=== PATIENT | female | born 1955 | race Caucasian/White ===

== ENCOUNTER 2022-06-14 08:39 | Outpatient (REF) | payer BC, SELFPAY ==
[2022-06-14 11:38] LABS: MANUAL DIFF FLAG NO
[2022-06-14 12:03] LABS: Basophils Absolute Auto 0.1 X10*3/uL (0.0-0.2); Basophils Percent Auto 0.8 % (0-2); Eosinophils Absolute Auto 0.2 X10*3/uL (0.0-0.4); Eosinophils Percent Auto 3.1 % (0-4); Hematocrit 45.1 % (37.0-47.0); Hemoglobin 14.2 g/dl (12.0-16.0); Imm Gran Abs Auto 0.03 X10*3/uL (0.00-0.03); Imm Gran Pct Auto 0.4 % (0.0-0.4); Lymphocytes Absolute Auto 0.9 X10*3/uL (1.2-4.9); Lymphocytes Percent Auto 12.1 % (20-40); Mean Corpuscular HGB Conc 31.5 g/dl (31.0-35.0); Mean Corpuscular Hemoglobin 26.1 pg (27.0-33.0); Mean Corpuscular Volume 82.8 fL (80.0-98.0); Mean Platelet Volume 10.8 fL (9.4-12.3); Monocytes Absolute Auto 0.6 X10*3/uL (0.1-1.2); Monocytes Percent Auto 7.5 % (2-11); Neutrophils Absolute Auto 5.7 x10*3/uL (2.0-8.3); Neutrophils Percent Auto 76.1 % (45-73); Platelet Count 281 X10*3/uL (160-400); Red Blood Count 5.45 X10*6/uL (4.20-5.50); Red Cell Distribution Width 13.7 % (11.0-16.0); White Blood Count 7.4 X10*3/uL (4.8-10.8)
[2022-06-14 12:37] LABS: Alanine Aminotransferase 12 U/L (0-31); Albumin Level 4.1 g/dL (3.5-5.0); Alkaline Phosphatase 88 U/L (39-117); Anion Gap 14 (12-20); Aspartate Amino Transferase 17 U/L (5-31); Bilirubin Total 0.3 mg/dL (0.0-1.0); Blood Urea Nitrogen 10 mg/dL (9-16); Calcium 9.2 mg/dL (8.4-10.2); Carbon Dioxide 22 mmol/L (22-29); Chloride 108 mmol/L (96-108); Cholesterol 189 mg/dL; Estimated Glomerular Filt Rate > 60; Glucose Fasting 97 mg/dL (60-99); HDL Cholesterol 58 mg/dL; LDL Cholesterol Calculated 103 mg/dl; Potassium 4.3 mmol/L (3.3-5.1); Sodium 140 mmol/L (135-145); Total Protein 6.9 g/dL (6.5-8.0); Triglycerides 144 mg/dL
[2022-06-14 12:57] LABS: TSH reflex Free T4 2.62 uIU/mL (0.32-4.0); Vitamin D 25-OH Total 19.8 ng/mL (>30)
== END 2022-06-14 08:40 | disposition home or self-care (01) ==
LOC: HO.HMGCLDS 08:39
PROVIDERS: PCP Internal Medicine; Visit Provider Internal Medicine
DX: Z00.00 Encounter for general adult medical examination without abnormal findings (principal); E55.9 Vitamin D deficiency, unspecified; I10 Essential (primary) hypertension
CPT/HCPCS: 36415; 80053; 80061; 82306; 84443; 85025

== ENCOUNTER 2022-08-20 09:25 | Outpatient (REF) | payer MEDICARE, SELFPAY ==
--- NOTE | ~2022-08-20 | MM_ITS ---
EXAMINATION: BONE DENSITOMETRY CLINICAL INDICATION: Menopause. COMPARISON: None (current study represents initial baseline exam). TECHNIQUE: Using a [employer] DXA System (software version: 13.1) manufactured by [employer], dual-energy x-ray absorptiometry was performed of the lumbar spine and left hip. The images are of good technical quality. Summary results are attached. FINDINGS: AP SPINE L2-L4 (excluding L1): The data of L1-L4 has been changed to exclude the L1 vertebral body, because degenerative changes at this level may cause overestimation of lumbar spine density. BMD 0.772 g/cm2, Z-score -3.1, T-score -3.6, osteoporosis. LEFT FEMUR, NECK: BMD 0.823 g/cm2, Z-score -0.8, T-score -1.5, osteopenia. LEFT FEMUR, TOTAL: BMD 0.937 g/cm2, Z-score -0.2, T-score -0.6, normal. IDENTIFIED RISK FACTORS: Menopause. HISTORY OF FRACTURE: None listed. MEDICATIONS: Calcium, vitamin D. MM/XR DEXA axial skeleton IMPRESSION: 1. DIAGNOSIS: Osteoporosis based on the lowest T-score value of -3.6 in the lumbar spine applying World Health Organization criteria. 2. 10-YEAR FRACTURE RISK PREDICTION, FRAX: According to the guidelines, FRAX calculation should only be performed on patients in the osteopenia bone density category. Therefore, FRAX was not performed on this patient. 3. Treatment Recommendations: NOF guidelines recommend consideration for treatment in postmenopausal women and men age 50 and older presenting with the following: -A hip or vertebral (clinical or morphometric) fracture. -T-score less than or equal to -2.5 at the femoral neck or spine after appropriate evaluation to exclude secondary causes. -Low bone mass at the hip or spine and a 10-year fracture probability by FRAX of greater than or equal to 3% for hip fracture or greater than or equal to 20% for major osteoporotic fracture based on the [place] adapted WHO algorithm. 4. Other Recommendations: All treatment decisions require clinical judgment and consideration of individual patient factors, including patient preferences, comorbidities, previous drug use, risk factors not captured in the FRAX model (e.g. frailty, falls, vitamin D deficiency, increased bone turnover, interval significant decline in bone density) and possible under or overestimation of fracture risk by FRAX. Additional medical evaluation for secondary cause of low bone mineral density may be appropriate. FUTURE SCAN RECOMMENDATION: People with diagnosed cases of osteoporosis or at high risk for fracture should have regular bone mineral density tests. For patients eligible for Medicare, routine testing is allowed once every 2 years. The testing frequency can be increased to one year for patients who have rapidly progressing disease, those who are receiving or discontinuing medical therapy to restore bone mass, or have additional risk factors.
== END 2022-08-20 09:26 | disposition home or self-care (01) ==
LOC: HO.MAMMO 09:25
PROVIDERS: PCP Internal Medicine; Visit Provider Internal Medicine
DX: Z13.820 Encounter for screening for osteoporosis (principal); Z78.0 Asymptomatic menopausal state
CPT/HCPCS: 77080

== ENCOUNTER 2023-02-04 08:27 | Outpatient (AMB) | payer BC, SELFPAY ==
[2023-02-04 08:44] VITALS: BP 122/66; PULSE 68; O2SAT 97; BMI 39.1
--- NOTE | 2023-02-04 08:44 | A.OFFPC_ITS ---
Vital Signs 02/04/23 08:44 Height 5 ft 5 in Weight 235 lb BMI 39.1 BP 122/66 Blood Pressure Location Lt brachial Position Sitting Pulse 68 Pulse Source Pulse Oximeter Pulse Oximetry (%) 97 Oxygen Delivery Method Room Air Intake Visit Reasons: 6 Month follow up Intake Note: Pt is here today for 6 months follow up visit. Allergies No Known Allergies Allergy (Verified 02/04/23 08:45) Medication List - Last Reconciled 02/04/23 by Ely Reed MD olmesartan 5 mg PO DAILY omeprazole 20 mg PO DAILY Tobacco use date assessed: 02/04/23 Fall risk assessment: No Falls in past year Last assessed Fall Risk: 02/04/23 Dental Screening Dental Screen Date: 02/04/23 Did you have a dental visit in the last 12 months?: No Did you have a dental problem in the last 6 months where you did not have access to dental care?: No Was dental information given to patient?: Patient declined HPI 6 Month follow up HPI Details Pt presents for the follow-up of hypertension and chronic GERD stable on current medications. DEXA showed osteoporosis in lumbar spine with T-score-3.6. Patient has been taking vitamin-D 3 2000 units a day PFSH Family History Brother Mental health disorder Father Pancreatic cancer Social History Household Members Other:: single, 1 daughter, vegeterian,retired Housing: House Patient Tobacco Use Status: Former Tobacco user e-Cigarette/Vaping Use: Never Used service: No Current occupational status: retired Cognitive needs: No Hearing needs: No Vision needs: Yes Questionnaire Thrive Questionnaire Date Thrive assessed: 06/14/22 AUDIT C Alcohol Use Questionnaire (AUDIT-C) 1. How often do you have a drink containing alcohol?: Never 3. How often do you have six or more drinks on one occasion?: Never Total Score: 0 UBALDO-7 AMB Questionnaire UBALDO-7 Date UBALDO - 7 assessed: 06/14/22 Source: Developed by Drs. Akash Espinal, Vidya Currie, Rajeev So and colleagues, with an educational lenka from [employer]. Review of Systems Const All systems reviewed & are unremarkable except as noted in HPI and below Reports no additional complaints Eyes Reports no additional complaints ENT Reports no additional complaints Card Reports no additional complaints Resp Reports no additional complaints GI Reports no additional complaints Reports no additional complaints Musc Reports no additional complaints Physical exam (Primary Care) Vital Signs: Last Vital Signs Pulse 68 02/04/23 08:44 BP 122/66 02/04/23 08:44 Pulse Ox 97 02/04/23 08:44 Oxygen Delivery Method Room Air 02/04/23 08:44 BMI result Body Mass Index 39.1 Tobacco/Smoking Status: Tobacco use Status Tobacco use date assessed 02/04/23 02/04/23 08:48 Patient Tobacco Use Status Former Tobacco user 02/04/23 08:48 e-Cigarette/Vaping Use Never Used 02/04/23 08:48 Thrive Assessment: Date of Thrive Assessment Date Thrive assessed 06/14/22 02/04/23 08:48 Const General: no acute distress HENMT Head: Yes normal to inspection Neck Neck: Yes supple Resp Effort & Inspection: normal respiratory effort Auscultation: clear to auscultation bilaterally Cardio Rhythm: regular rhythm Heart sounds: S1 normal heart sound present and S2 normal heart sound present GI Palpation (GI): Soft to palpation Assessment and Plan Assessment & Plan (1) GERD (gastroesophageal reflux disease): Code(s): K21.9 - Gastro-esophageal reflux disease without esophagitis Plan: Continue PPI follow-up with GI (2) HTN (hypertension): Code(s): I10 - Essential (primary) hypertension Plan: Continue olmesartan (3) Osteoporosis: Comment: DEXA 08/22 T score in L spine -3.6, Fosamax started 02/22 Code(s): M81.0 - Age-related osteoporosis without current pathological fracture Plan: Osteoporosis treatment discussed with the patient . Fosamax 70 mg weekly will be started and patient will continue vitamin-D supplement. Vit D level will be checked today. She was advised to increase physical activity and weight-bearing exercises. Patient will return in 6 months for physical with fasting labs before Orders: Orders Comprehensive [place]. Panel Fast 6 Months E55.9 - Vitamin D deficiency, unspecified, I10 - Essential (primary) hypertension, M81.0 - Age-related osteoporosis without current pathological fracture, Z00.00 - Encounter for general adult medical examination without abnormal findings Lipid Panel 6 Months E55.9 - Vitamin D deficiency, unspecified, I10 - Essential (primary) hypertension, M81.0 - Age-related osteoporosis without current pathological fracture, Z00.00 - Encounter for general adult medical examination without abnormal findings TSH reflex Free T4 6 Months E55.9 - Vitamin D deficiency, unspecified, I10 - Essential (primary) hypertension, M81.0 - Age-related osteoporosis without current pathological fracture, Z00.00 - Encounter for general adult medical examination without abnormal findings Vitamin D 25-OH Total 6 Months E55.9 - Vitamin D deficiency, unspecified, I10 - Essential (primary) hypertension, M81.0 - Age-related osteoporosis without current pathological fracture, Z00.00 - Encounter for general adult medical examination without abnormal findings Complete Blood Count Auto Diff 6 Months E55.9 - Vitamin D deficiency, unspecif ied, I10 - Essential (primary) hypertension, M81.0 - Age-related osteoporosis without current pathological fracture, Z00.00 - Encounter for general adult medical examination without abnormal findings Medications: New alendronate 70 mg PO QWEEK 14 tabs 3RF Coding Level of Care Code Est Pt Level 4 (42874) Diagnoses GERD (gastroesophageal reflux disease) K21.9 HTN (hypertension) I10 Osteoporosis M81.0
== END 2023-02-04 09:18 | disposition home or self-care (01) ==
PROVIDERS: Visit Provider Internal Medicine
DX: K21.9 Gastro-esophageal reflux disease without esophagitis (principal); I10 Essential (primary) hypertension; M81.0 Age-related osteoporosis without current pathological fracture
CPT/HCPCS: 99214

== ENCOUNTER 2023-02-04 09:07 | Outpatient (REF) | payer MEDICARE, SELFPAY ==
[2023-02-04 15:16] LABS: Vitamin D 25-OH Total 31.6 ng/mL (>30)
== END 2023-02-04 09:08 | disposition home or self-care (01) ==
LOC: HO.HMGCLDS 09:07
PROVIDERS: PCP Internal Medicine; Visit Provider Internal Medicine
DX: E55.9 Vitamin D deficiency, unspecified (principal)
CPT/HCPCS: 36415; 82306

== ENCOUNTER 2023-06-18 11:27 | Day surgery (SDC) | payer MEDICARE, SELFPAY ==
--- NOTE | 2023-06-16 13:43 | HO.ANESPROP2 ---
HPI - Anesthesia Eval Consult details Narrative: 67yo F for Colonoscopy? PMFSH Active Problems Active Problems: All Active Problems (Updated 02/04/23 @ 09:14 by Ely Reed MD) Osteoporosis (Acute) GERD (gastroesophageal reflux disease) (Acute) Postmenopausal (Acute) Vitamin D deficiency (Acute) HTN (hypertension) (Acute) Hx of colonoscopy (Acute) Knee pain, bilateral (Acute) Annual physical exam (Acute) Arthritis (Acute) Past Medical History Medical History (Updated 06/20/23 @ 10:40 by Ely Reed MD) Osteoporosis HTN (hypertension) Hepatitis C GERD (gastroesophageal reflux disease) Arthritis Family History Family History Brother Mental health disorder Father Pancreatic cancer Surgical History Surgical History (Updated 06/20/23 @ 10:40 by Ely Reed MD) H/O colonoscopy Social History Social History Household Members Other:: single, 1 daughter, vegeterian,retired Housing: House Patient Tobacco Use Status: Former Tobacco user Quit Date: 1997 e-Cigarette/Vaping Use: Never Used service: No Current occupational status: retired Cognitive needs: No Hearing needs: No Vision needs: Yes Meds Allergies Allergy/AdvReac Type Severity Reaction Status Date / Time No Known Allergies Allergy Verified 06/20/23 10:02 Home Medications Medication Instructions Recorded Confirmed Last Taken Type omeprazole 20 mg tablet,delayed 20 mg PO DAILY 01/31/22 06/20/23 Unknown History release Assessment and Plan Assessment Anesthesia Assessment: Chart Reviewed
[2023-06-16 14:56] VITALS: BMI 38.3
[2023-06-18 11:44] VITALS: BMI 38.0
[2023-06-18 12:08] VITALS: BP 135/81; PULSE 83; RESP 16; TEMP 36.8; O2SAT 96
[2023-06-18] MEDS: Lactated Ringers 1,000 ML 100 ML IVCONT (12:08)
--- NOTE | 2023-06-18 13:03 | MHC.SHP ---
Pre-Procedural Eval Section A Date of Service: 06/18/23 Section B Chief Complaint: screening Details of Present Illness: see H&P no changes Relevant Family History (Specify if Yes): No Relevant Social History: None Present Medications: see Short Stay Collaborative assessment Medical History: No relevant PMH History of Previous Operations: No relevant previous surgery Allergies: Allergies Allergy/AdvReac Type Severity Reaction Status Date / Time No Known Allergies Allergy Verified 02/04/23 08:45 Review of Systems Sugical H&P ROS: Negative: Constitution, Cardiovascular, Respiratory, Neurological, Psychiatric, Hem-Onc, Allergic/Immunologic, Gastrointestinal, Genitourinary, Musculoskeletal, Integumentary, Endocrine and Eyes/Ears/Nose/Throat Exam Surgical H&P Exam: Normal: HEENT, Normal: Heart, Normal: Lungs, Normal: Extremities, Normal: Abdomen, Normal: Skin and Normal: Neurological Plan Diagnosis/Plan: Unchanged I have reviewed the history and physical and performed a pertinent physical examination on my patient. No changes have occurred unless specified. Time Spent With Patient Time: Total time managing care of this patient today ____ minutes.
[2023-06-18 13:35] VITALS: BP 93/46; PULSE 75; RESP 18; TEMP 36.3; O2SAT 96
[2023-06-18 13:50] VITALS: BP 108/59; PULSE 70; RESP 16; TEMP 36.9; O2SAT 97
--- NOTE | 2023-06-18 21:19 | OP_ITS ---
DATE OF SERVICE: 06/18/2023 SURGEON: Shashank Salamanca MD INDICATIONS: Colon cancer screening and prior history of adenomatous colon polyps. PREOPERATIVE DIAGNOSIS: POSTOPERATIVE DIAGNOSIS: PROCEDURE PERFORMED: Colonoscopy to the terminal ileum with snare polypectomy. ESTIMATED BLOOD LOSS: COMPLICATIONS: ANESTHESIA: Monitored anesthesia care. ASSISTANTS: SPECIMENS: DESCRIPTION OF PROCEDURE: A history and physical was performed. The risks and benefits of the procedure explained to the patient. Informed consent was obtained. The patient was placed in the left lateral decubitus position. A digital rectal exam was performed and was found to be normal. The Olympus pediatric video colonoscope was introduced into the rectum and advanced to the cecum. The cecum was identified by transillumination, palpation, and identification of ileocecal valve. Examination was performed. The scope was removed. She tolerated the procedure well and was returned to the recovery area in stable condition. FINDINGS: The terminal ileum was normal. The visualized colonic mucosa was within normal limits without evidence of masses or ulcers. In the cecum was a 10 mm polyp, which was removed with a hot snare piecemeal and suctioned into the trap. Two polyps in the rectum, 1 measuring 12 mm and 1 measuring 6 mm were removed with a snare and recovered via suction as well. No other polyps were identified. The quality of prep was good. Retroflexed examination showed moderate-sized internal hemorrhoids. IMPRESSION: Colon polyps. RECOMMENDATION: Follow up the biopsy results. MD IAD [place]/MARYLU / [id number]
== END 2023-06-18 14:40 | disposition home or self-care (01) ==
PROVIDERS: PCP Internal Medicine; Visit Provider Internal Medicine Gastroenterology
PROC: 0DJD8ZZ Inspection of Lower Intestinal Tract, Via Natural or Artificial Opening Endoscopic (ICD-10-PCS; CPT 45378; principal; 2023-06-18 13:00)
DX: Z12.11 Encounter for screening for malignant neoplasm of colon (principal); D12.8 Benign neoplasm of rectum; K63.5 Polyp of colon; Z86.010 Personal history of colon polyps; I10 Essential (primary) hypertension
CPT/HCPCS: 45385; 88305; J2405; J2704

== ENCOUNTER 2023-06-20 09:58 | Outpatient (AMB) | payer MEDICARE, SELFPAY ==
[2023-06-20 10:00] VITALS: BP 120/74; PULSE 70; O2SAT 95; BMI 38.3
--- NOTE | 2023-06-20 10:00 | A.OFFPC_ITS ---
Vital Signs 06/20/23 10:00 Height 5 ft 5 in Weight 230 lb BMI 38.3 BP 120/74 Blood Pressure Location Lt brachial Position Sitting Pulse 70 Pulse Source Pulse Oximeter Pulse Oximetry (%) 95 Oxygen Delivery Method Room Air Intake Visit Reasons: PE Intake Note: Pt is here today for PE. Allergies No Known Allergies Allergy (Verified 06/20/23 10:02) Medication List - Last Reconciled 06/20/23 by Ely Reed MD olmesartan 5 mg PO DAILY omeprazole 20 mg PO DAILY Tobacco use date assessed: 06/20/23 Fall risk assessment: No Falls in past year Last assessed Fall Risk: 06/20/23 Dental Screening Dental Screen Date: 06/20/23 Did you have a dental visit in the last 12 months?: Yes Did you have a dental problem in the last 6 months where you did not have access to dental care?: No Was dental information given to patient?: Patient has dentist HPI PE HPI Details Pt presents for PE. Patient complains of right shoulder pain worse when trying to use it for the last 3 weeks. Patient denies any injury or weakness in the right upper extremity. [facility] Medical History (Updated 06/20/23 @ 10:40 by Ely Reed MD) Osteoporosis HTN (hypertension) Hepatitis C GERD (gastroesophageal reflux disease) Arthritis Surgical History (Updated 06/20/23 @ 10:40 by Ely Reed MD) H/O colonoscopy Family History Brother Mental health disorder Father Pancreatic cancer Social History Household Members Other:: single, 1 daughter, vegeterian,retired Housing: House Patient Tobacco Use Status: Former Tobacco user Quit Date: 1997 e-Cigarette/Vaping Use: Never Used service: No Current occupational status: retired Cognitive needs: No Hearing needs: No Vision needs: Yes Questionnaire PHQ-9 Over the last 2 weeks, how often have you been bothered by any of the following problems? 1. Little interest or pleasure in doing things: not at all 2. Feeling down, depressed, or hopeless: several days 3. Trouble falling or staying asleep, or sleeping too much: not at all 4. Feeling tired or having little energy: not at all 5. Poor appetite or overeating: not at all 6. Feeling bad about yourself - or that you are a failure or have let yourself or your family down: not at all 7. Trouble concentrating on things, such as reading the newspaper or watching television: not at all 8. Moving or speaking so slowly that other people could have noticed. Or the opposite - being so fidgety or restless that you have been moving around a lot more than usual: not at all 9. Thoughts that you would be better off or of hurting yourself in some way: not at all Total score: 1 Depression Screening Interpretation: Negative Depression Screening Done: Yes Source: Developed by Drs. Akash Espinal, Vidya Currie, Rajeev So and colleagues, with an educational lenka from [employer]. Thrive Questionnaire Date Thrive assessed: 06/20/23 I am a: Patient What is your living situation today?: I have a steady place to live Within the past 12 months, did the food you bought not last and you didn't have the money to get more?: Never true Within the past 12 months, did you worry whether your food would run out before you got money to buy more?: Never true Do you have trouble paying for medicines?: No Do you have trouble getting transportation to medical appointments?: No Do you have trouble paying your heating and electricity bill?: No Do you have trouble taking care of your child, family member or friend?: No Do you have trouble with day-to-day activities such as bathing, preparing meals, shopping, managing finances, etc.?: No Are you currently unemployed and looking for a job?: No Are you interested in more education?: No Please select the resources that you would like help with: None Currently or been in a relationship where the following occur: no concerns reported THRIVE Score: 0 AUDIT C Alcohol Use Questionnaire (AUDIT-C) 1. How often do you have a drink containing alcohol?: Never 3. How often do you have six or more drinks on one occasion?: Never Total Score: 0 UBALDO-7 AMB Questionnaire UBALDO-7 Date UBALDO - 7 assessed: 06/20/23 Feeling nervous, anxious, or on edge: 1 = Several days Not being able to stop or control worryin = Several days Worrying too much about different things: 0 = Not at all Trouble relaxin = Not at all Being so restless that it is hard to sit still: 0 = Not at all Becoming easily annoyed or irritable: 0 = Not at all Feeling afraid as if something awful might happen: 0 = Not at all Total UBALDO-7 score (0-4 normal; 5-9 mild; 10-14 moderate; 15-21 severe): 2 Source: Developed by Drs. Akash Espinal, Vidya Currie, Rajeev So and colleagues, with an educational lenka from [employer]. Review of Systems Const All systems reviewed & are unremarkable except as noted in HPI and below Reports no additional complaints Eyes Reports no additional complaints ENT Reports no additional complaints Card Reports no additional complaints Resp Reports no additional complaints GI Reports no additional complaints Reports no additional complaints Physical exam (Primary Care) Vital Signs: Last Vital Signs Pulse 70 06/20/23 10:00 BP 120/74 06/20/23 10:00 Pulse Ox 95 06/20/23 10:00 Oxygen Delivery Method Room Air 06/20/23 10:00 BMI result Body Mass Index 38.3 Tobacco/Smoking Status: Tobacco use Status Tobacco use date assessed 06/20/23 06/20/23 10:05 Patient Tobacco Use Status Former Tobacco user 06/20/23 10:05 e-Cigarette/Vaping Use Never Used 06/20/23 10:05 Depression Screening Interpretation: Negative Thrive Assessment: Date of Thrive Assessment Date Thrive assessed 06/14/22 06/20/23 10:05 Currently or been in a relationship where the following occur: no concerns reported Const General: no acute distress HENMT Head: Yes normal to inspection Ears: hearing grossly normal bilaterally Face and sinus: Yes normal facial exam Mouth: Normal oral and palatal mucosa present Throat: Yes posterior oropharynx normal Eyes General: appearance normal, both eyes and all related structures Neck Neck: Yes no lymphadenopathy and Yes supple Resp Effort & Inspection: normal respiratory effort Auscultation: clear to auscultation bilaterally Cardio Rhythm: regular rhythm Heart sounds: S1 normal heart sound present and S2 normal heart sound present GI Inspection: Yes normal to inspection Palpation (GI): Soft to palpation Percussion: Yes normal to percussion Auscultation: normal bowel sounds Extrem Other: Slightly decreased range of motion right shoulder , anterior aspect tenderness, no joint swelling erythema or watmth General: Yes no clubbing, cyanosis or edema Assessment and Plan Assessment & Plan (1) Annual physical exam: Code(s): Z00.00 - Encounter for general adult medical examination without abnormal findings Plan: Well-balanced diet regular physical activity discussed with the patient she will have a fasting blood work today. She is up-to-date with mammogram at [facility] (2) HTN (hypertension): Code(s): I10 - Essential (primary) hypertension Plan: Continue olmesartan and low-sodium diet (3) Osteoporosis: Comment: DEXA 08/22 T score in L spine -3.6, refuses Fosamax Code(s): M81.0 - Age-related osteoporosis without current pathological fracture Plan: Patient refused taking Fosamax. She will continue vitamin-D supplement regular exercises at the gym at least twice a week (4) Vitamin D deficiency: Code(s): E55.9 - Vitamin D deficiency, unspecified Plan: Continue vitamin-D. (5) Shoulder pain, right: Code(s): M25.511 - Pain in right shoulder Plan: Physical therapy was recommended but patient declined, she will try home range of motion exercises Orders: Orders Complete Blood Count Auto Diff 365 Days E55.9 - Vitamin D deficiency, unspecified, I10 - Essential (primary) hypertension, M81.0 - Age-related osteoporosis without current pathological fracture, Z00.00 - Encounter for general adult medical examination without abnormal findings Lipid Panel 365 Days E55.9 - Vitamin D deficiency, unspecified, I10 - Essential (primary) hypertension, M81.0 - Age-related osteoporosis without current pathological fracture, Z00.00 - Encounter for general adult medical examination without abnormal findings Comprehensive [place]. Panel Fast 365 Days E55.9 - Vitamin D deficiency, unspecified, I10 - Essential (primary) hypertension, M81.0 - Age-related osteoporosis without current pathological fracture, Z00.00 - Encounter for general adult medical examination without abnormal findings Vitamin D 25-OH Total 365 Days E55.9 - Vitamin D deficiency, unspecified, I10 - Essential (primary) hypertension, M81.0 - Age-related osteoporosis without current pathological fracture, Z00.00 - Encounter for general adult medical examination without abnormal findings Coding Level of Care Code Est Pt Prev Care >65y(07850) Diagnoses Annual physical exam Z00.00 HTN (hypertension) I10 Osteoporosis M81.0 Vitamin D deficiency E55.9 Shoulder pain, right M25.511
== END 2023-06-20 10:49 | disposition home or self-care (01) ==
PROVIDERS: PCP Internal Medicine; Visit Provider Internal Medicine
DX: Z00.00 Encounter for general adult medical examination without abnormal findings (principal); I10 Essential (primary) hypertension; M81.0 Age-related osteoporosis without current pathological fracture; E55.9 Vitamin D deficiency, unspecified; M25.511 Pain in right shoulder
CPT/HCPCS: 99397

== ENCOUNTER 2023-06-20 10:39 | Outpatient (REF) | payer MEDICARE, SELFPAY ==
[2023-06-20 13:37] LABS: MANUAL DIFF FLAG NO
[2023-06-20 13:48] LABS: Basophils Absolute Auto 0.1 X10*3/uL (0.0-0.2); Eosinophils Absolute Auto 0.2 X10*3/uL (0.0-0.4); Eosinophils Percent Auto 2.9 % (0-4); Imm Gran Abs Auto 0.01 X10*3/uL (0.00-0.03); Imm Gran Pct Auto 0.2 % (0.0-0.4); Lymphocytes Absolute Auto 1.2 X10*3/uL (1.2-4.9); Lymphocytes Percent Auto 20.2 % (20-40); Mean Corpuscular HGB Conc 32.6 g/dl (31.0-35.0); Mean Corpuscular Hemoglobin 26.7 pg (27.0-33.0); Mean Corpuscular Volume 81.9 fL (80.0-98.0); Mean Platelet Volume 11.1 fL (9.4-12.3); Monocytes Absolute Auto 0.5 X10*3/uL (0.1-1.2); Monocytes Percent Auto 8.9 % (2-11); Neutrophils Percent Auto 66.8 % (45-73); Platelet Count 299 X10*3/uL (160-400); Red Blood Count 5.25 X10*6/uL (4.20-5.50); Red Cell Distribution Width 13.8 % (11.0-16.0); White Blood Count 5.9 X10*3/uL (4.8-10.8)
[2023-06-20 14:37] LABS: Alanine Aminotransferase 14 U/L (0-31); Albumin Level 4.3 g/dL (3.5-5.0); Alkaline Phosphatase 81 U/L (39-117); Anion Gap 13 (12-20); Aspartate Amino Transferase 20 U/L (5-31); Bilirubin Total 0.5 mg/dL (0.0-1.0); Blood Urea Nitrogen 10 mg/dL (9-16); Calcium 9.3 mg/dL (8.4-10.2); Carbon Dioxide 23 mmol/L (22-29); Chloride 106 mmol/L (96-108); Cholesterol 192 mg/dL (<200); Estimated Glomerular Filt Rate > 60; Glucose Fasting 97 mg/dL (60-99); HDL Cholesterol 60 mg/dL (>40); LDL Cholesterol Calculated 113 mg/dL (<100); Potassium 3.8 mmol/L (3.3-5.1); Sodium 138 mmol/L (135-145); Total Protein 7.5 g/dL (6.5-8.0); Triglycerides 97 mg/dL (<150)
[2023-06-20 14:39] LABS: TSH reflex Free T4 2.55 uIU/mL (0.32-4.0); Vitamin D 25-OH Total 51.1 ng/mL (>30)
== END 2023-06-20 10:40 | disposition home or self-care (01) ==
LOC: HO.HMGCLDS 10:39
PROVIDERS: PCP Internal Medicine; Visit Provider Internal Medicine
DX: Z00.00 Encounter for general adult medical examination without abnormal findings (principal); M81.0 Age-related osteoporosis without current pathological fracture; E55.9 Vitamin D deficiency, unspecified; I10 Essential (primary) hypertension
CPT/HCPCS: 36415; 80053; 80061; 82306; 84443; 85025

== ENCOUNTER 2024-01-22 09:31 | Outpatient (AMB) | payer MEDICARE, SELFPAY ==
--- NOTE | 2024-01-22 09:35 | AM.OFFWIN_ITS ---
Intake Vital Signs 01/22/24 09:39 Weight 228 lb BP 140/80 H Blood Pressure Location Lt brachial Position Sitting Pulse 73 Pulse Source Pulse Oximeter Pulse Oximetry (%) 98 Oxygen Delivery Method Room Air Intake Visit Reasons: EP- RT eye pain, redness Intake Note: Patient here for right eye pain that started friday. worsening and redness Patient Tobacco Use Status: Former Tobacco user Allergies No Known Allergies Allergy (Verified 01/22/24 09:39) Do you need a note to return to daycare/school/sports/work: No HPI HPI Comments History of Present Illness Details Patient is a 68-year-old female complaining of redness and increasing pain in her right eye for 3 days. She states that she woke up 3 days ago with the redness in her right eye. She states it has been getting increasingly painful since then. She denies any changes in her vision, blurry vision, any discharge, or trauma to the area. [facility] Medical History Osteoporosis HTN (hypertension) Hepatitis C GERD (gastroesophageal reflux disease) Arthritis Surgical History H/O colonoscopy Family History Brother Mental health disorder Father Pancreatic cancer Social History Household Members Other:: single, 1 daughter, vegeterian,retired Housing: House Patient Tobacco Use Status: Former Tobacco user e-Cigarette/Vaping Use: Never Used service: No Current occupational status: retired Cognitive needs: No Hearing needs: No Vision needs: Yes Review of Systems Const All systems reviewed & are unremarkable except as noted in HPI and below Physical Exam Vital Signs: Last Vital Signs Pulse 73 01/22/24 09:39 BP 140/80 H 01/22/24 09:39 Pulse Ox 98 01/22/24 09:39 Oxygen Delivery Method Room Air 01/22/24 09:39 Const General: cooperative, healthy appearing, comfortable, no acute distress and well developed Orientation/consciousness: patient oriented x3 Limitations: no limitations HEENT Head: Yes normal to inspection Ears: hearing grossly normal bilaterally General nose exam: Normal external nose present Face and sinus: Yes normal facial exam Eyes Alignment and Position: alignment normal and position normal Periorbital: periorbital findings normal Eyelids: Yes eyelids normal Conjunctivae: conjunctivae normal (left eye) and conjunctival abnormal right subconjunctival hemorrhage (Right eye, lateral and inferior to the iris has blood pooling and hemorrhage ) Corneas: corneas normal Pupils: Equal, round and reactive pupils present and Pupils normal by confrontation EOM: EOMs intact bilaterally Neck Neck: Yes normal visual inspection and Yes full ROM Resp Effort & Inspection: normal respiratory effort and able to speak in complete sentences Skin General skin exam: no rashes or lesions noted Neuro General: patient oriented x3 Cranial nerves: Yes Equal, round and reactive pupils present Extrem General: Yes normal to inspection Assessment & Plan Assessment & Plan (1) Hyphema of right eye: Code(s): H21.01 - Hyphema, right eye Plan: Blood pressure is a little elevated at 140/80, patient does have history of hypertension. Apparent no trauma hyphema with pain, called Dr. Adorno's office to have patient emergently evaluated at 13:00 today. Plan See above Coding Level of Care Code Est Pt Level 4 (65950) Diagnoses Hyphema of right eye H21.01
[2024-01-22 09:39] VITALS: BP 140/80; PULSE 73; O2SAT 98
== END 2024-01-22 10:12 | disposition home or self-care (01) ==
PROVIDERS: PCP Internal Medicine; Visit Provider Physician Assistant
DX: H21.01 Hyphema, right eye (principal)
CPT/HCPCS: 99214

== ENCOUNTER 2024-02-03 09:11 | Outpatient (AMB) | payer MEDICARE, SELFPAY ==
--- NOTE | 2024-02-03 09:31 | AM.OFFWIN_ITS ---
Intake Vital Signs 02/03/24 09:32 Height 5 ft 5 in Weight 231 lb BMI 38.4 BP 126/78 Blood Pressure Location Rt brachial Position Sitting Pulse 71 Pulse Source Pulse Oximeter Pulse Oximetry (%) 98 Oxygen Delivery Method Room Air Intake Visit Reasons: EP RT/LT foot injury Intake Note: Patient here because about 1 week ago she dropped a bench on her right foot and since then it has become bothersome and wants to make sure nothing is broken. Patient Tobacco Use Status: Former Tobacco user Allergies No Known Allergies Allergy (Verified 02/03/24 09:33) Do you need a note to return to daycare/school/sports/work: No HPI HPI Comments History of Present Illness Details Patient is a 68-year-old female complaining of right foot pain for 10 days. She states that 10 days ago, her CT knocked over a small wooden bench that fell on both of her feet. Since then, her left foot has improved but her right foot is still swollen and gets painful and sometimes gets so swollen that she has numbness and tingling in her foot. She states she has been trying to rest her feet using ice and elevation for the swelling. She is just concerned because the right foot is still swollen and painful and she wants to make sure nothing is broken. [facility], [facility] Medical History Osteoporosis HTN (hypertension) Hepatitis C GERD (gastroesophageal reflux disease) Arthritis Surgical History H/O colonoscopy Family History Brother Mental health disorder Father Pancreatic cancer Social History Household Members Other:: single, 1 daughter, vegeterian,retired Housing: House Patient Tobacco Use Status: Former Tobacco user e-Cigarette/Vaping Use: Never Used service: No Current occupational status: retired Cognitive needs: No Hearing needs: No Vision needs: Yes Review of Systems Const All systems reviewed & are unremarkable except as noted in HPI and below Physical Exam Vital Signs: Last Vital Signs Pulse 71 02/03/24 09:32 BP 126/78 02/03/24 09:32 Pulse Ox 98 02/03/24 09:32 Oxygen Delivery Method Room Air 02/03/24 09:32 BMI result Body Mass Index 38.4 Const General: cooperative, healthy appearing, comfortable and no acute distress Orientation/consciousness: patient oriented x3 Limitations: no limitations HEENT Head: Yes normal to inspection Resp Effort & Inspection: normal respiratory effort and able to speak in complete sentences Neuro General: patient oriented x3 Extrem Right lower extremity: foot Details: tenderness Location: of the dorsal foot and of the mid foot, toes with normal ROM, edema Location: of the dorsal foot and of the medial foot, vascular exam Details: normal capillary refill, tendon exam Details: active flexion normal and active extension normal and motor-sensory exam Details: light-touch normal; no unusual warmth, no abrasion, no laceration and no ecchymosis Left lower extremity: normal to inspection Assessment & Plan Assessment & Plan (1) Injury of foot, right: Code(s): S99.921A - Unspecified injury of right foot, initial encounter Qualifiers: Encounter type: initial encounter Qualified Code(s): S99.921A - Unspecified injury of right foot, initial encounter Plan: With persistent swelling and pain, we will get a x-ray of the right foot, recommend patient continue with rest ice and ibuprofen as needed for pain. (2) Foot pain, right: Code(s): M79.671 - Pain in right foot Plan: See above (3) Swelling of right foot: Code(s): M79.89 - Other specified soft tissue disorders Plan: See above Plan See above Orders: Orders XR foot RT min 3V Today M79.671 - Pain in right foot, M79.89 - Other specified soft tissue disorders, S99.921A - Unspecified injury of right foot, initial encounter Coding Level of Care Code Est Pt Level 3 (61555) Diagnoses Injury of right foot, initial encounter S99.921A Encounter type: initial encounter Foot pain, right M79.671 Swelling of right foot M79.89
[2024-02-03 09:32] VITALS: BP 126/78; PULSE 71; O2SAT 98; BMI 38.4
== END 2024-02-03 10:40 | disposition home or self-care (01) ==
PROVIDERS: PCP Internal Medicine; Visit Provider Physician Assistant
DX: S99.921A Unspecified injury of right foot, initial encounter (principal); M79.671 Pain in right foot; M79.89 Other specified soft tissue disorders
CPT/HCPCS: 99213

== ENCOUNTER 2024-02-03 10:02 | Outpatient (REF) | payer MEDICARE, SELFPAY ==
--- NOTE | ~2024-02-03 | XR_ITS ---
EXAMINATION: XR FOOT, RIGHT CLINICAL INFORMATION: Unspecified foot injury COMPARISON: None available. TECHNIQUE: AP, lateral, and oblique views of the right foot. FINDINGS: No fracture, dislocation or destructive processes or erosive change. Moderate-sized plantar spur. XR/XR foot RT min 3V IMPRESSION: No acute findings. Electronically signed by: Emerson Nunez MD 02/03/2024 11:16 AM EDT
== END 2024-02-03 10:03 | disposition home or self-care (01) ==
LOC: HO.HMGCX 10:02
PROVIDERS: PCP Internal Medicine; Visit Provider Physician Assistant
DX: S99.921A Unspecified injury of right foot, initial encounter (principal); M79.671 Pain in right foot; M79.89 Other specified soft tissue disorders
CPT/HCPCS: 73630

== ENCOUNTER 2024-04-17 09:08 | Outpatient (AMB) | payer MEDICARE, SELFPAY ==
[2024-04-17 09:14] VITALS: BP 132/90; PULSE 90; TEMP 36.9; O2SAT 98; BMI 38.4
--- NOTE | 2024-04-17 09:14 | AM.OFFWIN_ITS ---
Intake Vital Signs 3 04/17/24 09:14 Height 5 ft 5 in Weight 231 lb BMI 38.4 BP 132/90 H Blood Pressure Location Rt brachial Position Sitting Pulse 90 Pulse Source Pulse Oximeter Temp 98.4 F Temp Source Oral Pulse Oximetry (%) 98 Intake Visit Reasons: EP jaw pain Intake Note: pt is here for jaw pain, had tooth pain and went into jaw Patient Tobacco Use Status: Former Tobacco user Allergies No Known Allergies Allergy (Verified 04/17/24 09:15) Do you need a note to return to daycare/school/sports/work: No HPI HPI Comments 2 History of Present Illness0 Details 68 y/o female patient who presents to [facility] walk in clinic with c/o Left Jaw pain associated with tooth infection. Pt reports that she has a broken tooth and infected. She noticed symptoms 4 days ago. She tried to call her Dentist today, but got an answering service and did not leave Voicemail. PFSH Medical History Osteoporosis HTN (hypertension) Hepatitis C GERD (gastroesophageal reflux disease) Arthritis Surgical History H/O colonoscopy Family History Brother Mental health disorder Father Pancreatic cancer Social History Household Members Other:: single, 1 daughter, vegeterian,retired Housing: House Patient Tobacco Use Status: Former Tobacco user e-Cigarette/Vaping Use: Never Used service: No Current occupational status: retired Cognitive needs: No Hearing needs: No Vision needs: Yes Review of Systems Const All systems reviewed & are unremarkable except as noted in HPI and below Physical Exam Vital Signs: Last Vital Signs Temp 98.4 F 04/17/24 09:14 Pulse 90 04/17/24 09:14 BP 132/90 H 04/17/24 09:14 Pulse Ox 98 04/17/24 09:14 BMI result Body Mass Index 38.4 Const General: cooperative and no acute distress Orientation/consciousness: patient oriented x3 HEENT Head: Yes normocephalic Ears: external ears normal General nose exam: Normal external nose present Face and sinus: Yes sinuses nontender Mouth: tongue normal and moist mucous membranes Teeth and gingiva: dentures, gingiva abnormal diffusely erythematous and tender and poor dentition Teeth image: 2 1. Partial broken tooth, infected black in color. Red inflamed Gums. Missing all of the upper teeth and most of her lower teeth. Throat: Yes posterior oropharynx normal, Yes tonsils normal and Yes uvula midline Neuro General: patient oriented x3, gait normal and moves all extremities Psych Speech and movement: Normal speech and movement present Assessment & Plan Assessment & Plan (1) Dental infection: Code(s): K04.7 - Periapical abscess without sinus Plan: Ordered PCN Pt needs to f/u with Dentist for tooth extrction. NSAIDs for pain relief. Medications: New 2 penicillin V potassium 500 mg PO BID 10 tabs 0RF 5 days K04.7 - Periapical abscess without sinus Coding Level of Care Code Est Pt Level 3 (14089) Diagnoses Dental infection K04.7 Time Spent (min) 15
== END 2024-04-17 10:10 | disposition home or self-care (01) ==
PROVIDERS: PCP Internal Medicine; Visit Provider Nurse Practitioner Family
DX: K04.7 Periapical abscess without sinus (principal)

== ENCOUNTER → 2024-04-17 09:08 | Outpatient (BNVA) | payer MEDICARE, SELFPAY | PROVIDERS: PCP Internal Medicine; Visit Provider Nurse Practitioner Family | DX: K04.7 Periapical abscess without sinus (principal) | CPT/HCPCS: 99212 ==

== ENCOUNTER 2024-06-18 10:14 | Outpatient (REF) | payer MEDICARE, SELFPAY ==
[2024-06-18 13:03] LABS: MANUAL DIFF FLAG NO
[2024-06-18 13:07] LABS: Basophils Absolute Auto 0.1 X10*3/uL (0.0-0.2); Eosinophils Absolute Auto 0.3 X10*3/uL (0.0-0.4); Eosinophils Percent Auto 5.4 % (0-4); Hematocrit 44.8 % (37.0-47.0); Hemoglobin 14.1 g/dl (12.0-16.0); Imm Gran Abs Auto 0.02 X10*3/uL (0.00-0.03); Imm Gran Pct Auto 0.3 % (0.0-0.4); Lymphocytes Absolute Auto 1.2 X10*3/uL (1.2-4.9); Lymphocytes Percent Auto 19.7 % (20-40); Mean Corpuscular HGB Conc 31.5 g/dl (31.0-35.0); Mean Corpuscular Hemoglobin 26.1 pg (27.0-33.0); Mean Corpuscular Volume 82.8 fL (80.0-98.0); Mean Platelet Volume 10.7 fL (9.4-12.3); Monocytes Absolute Auto 0.6 X10*3/uL (0.1-1.2); Monocytes Percent Auto 8.8 % (2-11); Neutrophils Absolute Auto 4.1 x10*3/uL (2.0-8.3); Neutrophils Percent Auto 64.8 % (45-73); Platelet Count 307 X10*3/uL (160-400); Red Blood Count 5.41 X10*6/uL (4.20-5.50); Red Cell Distribution Width 14.1 % (11.0-16.0); White Blood Count 6.3 X10*3/uL (4.8-10.8)
[2024-06-18 13:30] LABS: Alanine Aminotransferase 18 U/L (0-31); Alkaline Phosphatase 75 U/L (39-117); Anion Gap 10 (12-20); Aspartate Amino Transferase 22 U/L (5-31); Bilirubin Total 0.5 mg/dL (0.0-1.0); Blood Urea Nitrogen 7 mg/dL (9-16); Calcium 9.1 mg/dL (8.4-10.2); Carbon Dioxide 25 mmol/L (22-29); Chloride 110 mmol/L (96-108); Cholesterol 186 mg/dL (<200); Estimated Glomerular Filt Rate > 60; Glucose Fasting 98 mg/dL (60-99); HDL Cholesterol 56 mg/dL (>40); LDL Cholesterol Calculated 107 mg/dL (<100); Potassium 4.1 mmol/L (3.3-5.1); Sodium 141 mmol/L (135-145); Total Protein 7.3 g/dL (6.5-8.0); Triglycerides 116 mg/dL (<150)
[2024-06-18 13:38] LABS: Vitamin D 25-OH Total 71.7 ng/mL (>30)
== END 2024-06-18 10:15 | disposition home or self-care (01) ==
LOC: HO.HMGCLDS 10:14
PROVIDERS: PCP Internal Medicine; Visit Provider Internal Medicine
DX: Z00.00 Encounter for general adult medical examination without abnormal findings (principal); E55.9 Vitamin D deficiency, unspecified; M81.0 Age-related osteoporosis without current pathological fracture; I10 Essential (primary) hypertension
CPT/HCPCS: 36415; 80053; 80061; 82306; 85025

== ENCOUNTER 2024-06-25 09:02 | Outpatient (AMB) | payer MEDICARE, SELFPAY ==
[2024-06-25 09:07] VITALS: BP 120/70; PULSE 85; TEMP 36.7; O2SAT 99; BMI 37.9
--- NOTE | 2024-06-25 09:07 | A.OFFPC_ITS ---
Vital Signs 06/25/24 09:07 Height 5 ft 5 in Weight 228 lb BMI 37.9 BP 120/70 Blood Pressure Location Rt brachial Position Sitting Pulse 85 Pulse Source Pulse Oximeter Temp 98.1 F Temp Source Oral Pulse Oximetry (%) 99 Oxygen Delivery Method Room Air Intake Visit Reasons: Annual PE Intake Note: Pt is here today for PE. Allergies No Known Allergies Allergy (Verified 06/25/24 09:09) Medication List - Last Reconciled 06/25/24 by Ely Reed MD olmesartan 5 mg PO DAILY omeprazole 20 mg PO DAILY Tobacco use date assessed: 06/25/24 Fall risk assessment: No Falls in past year Last assessed Fall Risk: 06/25/24 Dental Screening Dental Screen Date: 06/25/24 Did you have a dental visit in the last 12 months?: Yes Did you have a dental problem in the last 6 months where you did not have access to dental care?: No Was dental information given to patient?: Patient has dentist HPI Annual PE HPI Details Patient presents for physical. She reports chronic anxiety getting worse over last few months due to political situation. Patient denies change in appetite, sleeping pattern, depression or suicide ideation. She used to see a counselor is not interested in psychotherapy. [facility] Medical History Osteoporosis HTN (hypertension) Hepatitis C GERD (gastroesophageal reflux disease) Arthritis Surgical History (Updated 06/25/24 @ 10:07 by Ely Reed MD) H/O colonoscopy Family History Brother Mental health disorder Father Pancreatic cancer Social History Household Members Other:: single, 1 daughter, vegeterian,retired Housing: House Patient Tobacco Use Status: Former Tobacco user e-Cigarette/Vaping Use: Never Used service: No Current occupational status: retired Cognitive needs: No Hearing needs: No Vision needs: Yes Questionnaire PHQ-9 Over the last 2 weeks, how often have you been bothered by any of the following problems? 1. Little interest or pleasure in doing things: several days 2. Feeling down, depressed, or hopeless: several days 3. Trouble falling or staying asleep, or sleeping too much: several days 4. Feeling tired or having little energy: several days 5. Poor appetite or overeating: several days 6. Feeling bad about yourself - or that you are a failure or have let yourself or your family down: not at all 7. Trouble concentrating on things, such as reading the newspaper or watching television: not at all 8. Moving or speaking so slowly that other people could have noticed. Or the opposite - being so fidgety or restless that you have been moving around a lot more than usual: not at all 9. Thoughts that you would be better off or of hurting yourself in some way: not at all Total score: 5 Depression Screening Interpretation: Negative Depression Screening Done: Yes 66073 - PHQ-9 Billing: Yes Source: Developed by Drs. Akash Espinal, Vidya Currie, Rajeev So and colleagues, with an educational lenka from [employer]. Thrive Questionnaire Date Thrive assessed: 06/25/24 I am a: Patient What is your living situation today?: I have a steady place to live Within the past 12 months, did the food you bought not last and you didn't have the money to get more?: Never true Within the past 12 months, did you worry whether your food would run out before you got money to buy more?: Never true Do you have trouble paying for medicines?: No Do you have trouble getting transportation to medical appointments?: No Do you have trouble paying your heating and electricity bill?: No Do you have trouble taking care of your child, family member or friend?: No Do you have trouble with day-to-day activities such as bathing, preparing meals, shopping, managing finances, etc.?: No Are you currently unemployed and looking for a job?: No Are you interested in more education?: No Please select the resources that you would like help with: None Currently or been in a relationship where the following occur: No concerns reported THRIVE Score: 0 AUDIT C Alcohol Use Questionnaire (AUDIT-C) 1. How often do you have a drink containing alcohol?: Monthly or less 2. How many drinks containing alcohol do you have on a typical day when you are drinking?: 1 or 2 3. How often do you have six or more drinks on one occasion?: Never Total Score: 1 UBALDO-7 AMB Questionnaire UBALDO-7 Date UBALDO - 7 assessed: 06/25/24 Feeling nervous, anxious, or on edge: 2 = More than half the days Not being able to stop or control worryin = More than half the days Worrying too much about different things: 2 = More than half the days Trouble relaxin = More than half the days Being so restless that it is hard to sit still: 0 = Not at all Becoming easily annoyed or irritable: 1 = Several days Feeling afraid as if something awful might happen: 1 = Several days Total UBALDO-7 score (0-4 normal; 5-9 mild; 10-14 moderate; 15-21 severe): 10 Source: Developed by Drs. Akash Espinal, Vidya Currie, Rajeev So and colleagues, with an educational lenka from [employer]. UBALDO-7 Assessment Billing UBALDO-7 Assessment Tool: UBALDO-7 Assessment 22703 Review of Systems Const All systems reviewed & are unremarkable except as noted in HPI and below Reports no additional complaints Eyes Reports no additional complaints ENT Reports no additional complaints Card Reports no additional complaints Resp Reports no additional complaints GI Reports no additional complaints Reports no additional complaints Physical exam (Primary Care) Vital Signs: Last Vital Signs Temp 98.1 F 06/25/24 09:07 Pulse 85 06/25/24 09:07 BP 120/70 06/25/24 09:07 Pulse Ox 99 06/25/24 09:07 Oxygen Delivery Method Room Air 06/25/24 09:07 BMI result Body Mass Index 37.9 Tobacco/Smoking Status: Tobacco use Status Tobacco use date assessed 06/25/24 06/25/24 09:14 Patient Tobacco Use Status Former Tobacco user 06/25/24 09:07 e-Cigarette/Vaping Use Never Used 06/25/24 09:07 PHQ-9: PHQ-9 Score PHQ-9: Total score 5 06/25/24 09:14 Depression Screening Interpretation: Negative Thrive Assessment: Date of Thrive Assessment Date Thrive assessed 06/25/24 06/25/24 09:14 Currently or been in a relationship where the following occur: No concerns reported Const General: no acute distress HENMT Head: Yes normal to inspection Ears: hearing grossly normal bilaterally Face and sinus: Yes normal facial exam Mouth: Normal oral and palatal mucosa present Throat: Yes posterior oropharynx normal Eyes General: appearance normal, both eyes and all related structures Neck Neck: Yes no lymphadenopathy and Yes supple Thyroid: diffusely enlarged Resp Effort & Inspection: normal respiratory effort Auscultation: clear to auscultation bilaterally Cardio Rhythm: regular rhythm Heart sounds: S1 normal heart sound present and S2 normal heart sound present GI Inspection: Yes normal to inspection Palpation (GI): Soft to palpation Percussion: Yes normal to percussion Auscultation: normal bowel sounds Coding Level of Care Code Est Pt Prev Care >65y(07683) Diagnoses Hx of mammogram Z92.89 Enlarged thyroid E04.9 HTN (hypertension) I10 Vitamin D deficiency E55.9 Osteoporosis M81.0 Hx of colonoscopy Z98.890 Additional Codes UBALDO-7 Assessment Billing - UBALDO-7 Assessment Tool: UBALDO-7 Assessment 08303 ([id number]) PHQ-9 - 68363 - PHQ-9 Billing: Yes ([id number]) Assessment & Plan Assessment & Plan (1) Hx of mammogram: Code(s): Z92.89 - Personal history of other medical treatment Category: Medical Plan: [facility] 2023 (2) Enlarged thyroid: Code(s): E04.9 - Nontoxic goiter, unspecified Category: Medical Plan: Obtain thyroid ultrasound to evaluate (3) HTN (hypertension): Code(s): I10 - Essential (primary) hypertension Category: Medical Plan: Continue olmesartan (4) Vitamin D deficiency: Code(s): E55.9 - Vitamin D deficiency, unspecified Category: Medical Plan: Continue vitamin-D supplement (5) Osteoporosis: Comment: DEXA 08/22 T score in L spine -3.6, refuses Fosamax Code(s): M81.0 - Age-related osteoporosis without current pathological fracture Category: Medical Plan: Patient declined repeating DEXA, weight-bearing exercises and vitamin-D supplement discussed with the patient. (6) Hx of colonoscopy: Comment: hx of polyps 2017, follow-up colonoscopy 06/25 3 polyps recheck [address] Salamanca Code(s): Z98.890 - Other specified postprocedural states Category: Surgical Plan: Follow-up with GI Orders: Orders Lipid Panel 1 Year E55.9 - Vitamin D deficiency, unspecified, I10 - Essential (primary) hypertension, M81.0 - Age-related osteoporosis without current pathological fracture Complete Blood Count Auto Diff 1 Year E55.9 - Vitamin D deficiency, unspecified, I10 - Essential (primary) hypertension, M81.0 - Age-related osteoporosis without current pathological fracture thyroid Today E04.9 - Nontoxic goiter, unspecified Comprehensive Lovely. Panel Fast 1 Year E55.9 - Vitamin D deficiency, unspecified, I10 - Essential (primary) hypertension, M81.0 - Age-related osteoporosis without current pathological fracture TSH reflex Free T4 1 Year E55.9 - Vitamin D deficiency, unspecified, I10 - Essential (primary) hypertension, M81.0 - Age-related osteoporosis without current pathological fracture Vitamin D 25-OH Total 1 Year E55.9 - Vitamin D deficiency, unspecified, I10 - Essential (primary) hypertension, M81.0 - Age-related osteoporosis without current pathological fracture Medications: Refilled olmesartan 5 mg PO DAILY 90 tabs 3RF
== END 2024-06-25 10:09 | disposition home or self-care (01) ==
PROVIDERS: PCP Internal Medicine; Visit Provider Internal Medicine
DX: Z00.00 Encounter for general adult medical examination without abnormal findings (principal); E04.9 Nontoxic goiter, unspecified; I10 Essential (primary) hypertension; Z92.89 Personal history of other medical treatment; E55.9 Vitamin D deficiency, unspecified; M81.0 Age-related osteoporosis without current pathological fracture; Z98.890 Other specified postprocedural states

== ENCOUNTER → 2024-06-25 09:02 | Outpatient (BNVA) | payer MEDICARE, SELFPAY | PROVIDERS: PCP Internal Medicine; Visit Provider Internal Medicine | DX: Z00.01 Encounter for general adult medical examination with abnormal findings (principal); E04.9 Nontoxic goiter, unspecified; I10 Essential (primary) hypertension; Z92.89 Personal history of other medical treatment; E55.9 Vitamin D deficiency, unspecified; M81.0 Age-related osteoporosis without current pathological fracture; Z98.890 Other specified postprocedural states | CPT/HCPCS: 96127; 99397 ==

== ENCOUNTER 2024-07-02 11:23 | Outpatient (REF) | payer MEDICARE, SELFPAY | END 2024-07-02 11:24 | disposition home or self-care (01) | LOC: HO.HMGCX 11:23 | PROVIDERS: PCP Internal Medicine; Visit Provider Internal Medicine | DX: E04.9 Nontoxic goiter, unspecified (principal) | CPT/HCPCS: 76536 ==

== ENCOUNTER → 2024-07-02 11:25 | Outpatient (BNV) | payer MEDICARE, SELFPAY | PROVIDERS: PCP Internal Medicine; Visit Provider Radiology Diagnostic Radiology | DX: E04.9 Nontoxic goiter, unspecified (principal) | CPT/HCPCS: 76536 ==

== ENCOUNTER 2024-11-24 09:05 | Outpatient (AMB) | payer MEDICARE, SELFPAY ==
[2024-11-24 09:27] VITALS: BP 126/74; PULSE 79; TEMP 36.8; O2SAT 97; BMI 36.4
--- NOTE | 2024-11-24 09:27 | AM.OFFWIN_ITS ---
Intake Vital Signs 11/24/24 09:27 Height 5 ft 5 in Weight 219 lb BMI 36.4 BP 126/74 Blood Pressure Location Lt brachial Position Sitting Pulse 79 Pulse Source Pulse Oximeter Temp 98.3 F Temp Source Oral Pulse Oximetry (%) 97 Oxygen Delivery Method Room Air Intake Visit Reasons: EP lump back of ear RT ear Intake Note: Patient present lump on back of ear times 2 days. Sore to touch Patient Tobacco Use Status: Former Tobacco user Allergies No Known Allergies Allergy (Verified 11/24/24 09:29) Do you need a note to return to daycare/school/sports/work: No HPI HPI Comments History of Present Illness Details History of Present Illness - The patient is a 69-year-old female pr esenting with a lump behind the right ear. - The lump appeared one day prior to the visit and was initially more swollen upon waking. - The lump was painful to touch initiall y but is now only noticeable without pain. - No recent upper respiratory symptoms, fever, or ear pain reported. - No interventions such as ice or heat h ave been applied to the area. - The patient has no history of diabetes . - Had Sobeida Harmon PA-C examine pt as pn just inferior to mastoid bone, she agreed, tenderness more on the lymph node than the mastoid bone. Physical Exam General: Cooperative, healthy appearing, comfortable, no acute distress and well developed Orientation: Patient oriented x3 Limitations: No limitations Head: no ttp mastoid bone right side Ears: Hearing grossly normal bilaterally, right sided post-auricular lymph ttp, TM normal right side Nose: Normal External nose present Face and sinus: Normal facial exam Eyes: Appearance normal, both eyes and all related structures Neck: Normal visual inspection and Yes full ROM Respiratory: Normal respiratory effort and able to speak in complete sentences. Skin: No rashes or lesions noted Neuro: Patient oriented x3 Extremities: Normal to inspection [facility] Medical History (Updated 11/24/24 @ 09:57 by Sasha Peña PA-C) Osteoporosis HTN (hypertension) Hepatitis C GERD (gastroesophageal reflux disease) Arthritis Surgical History (Updated 06/25/24 @ 10:07 by Ely Reed MD) H/O colonoscopy Family History Brother Mental health disorder Father Pancreatic cancer Social History Household Members Other:: single, 1 daughter, vegeterian,retired Housing: House Patient Tobacco Use Status: Former Tobacco user e-Cigarette/Vaping Use: Never Used service: No Current occupational status: retired Cognitive needs: No Hearing needs: No Vision needs: Yes Review of Systems Const All systems reviewed & are unremarkable except as noted in HPI and below Physical Exam Vital Signs: Last Vital Signs Temp 98.3 F 11/24/24 09:27 Pulse 79 11/24/24 09:27 BP 126/74 11/24/24 09:27 Pulse Ox 97 11/24/24 09:27 Oxygen Delivery Method Room Air 11/24/24 09:27 BMI result Body Mass Index 36.4 Assessment & Plan Assessment & Plan (1) Posterior auricular lymphadenopathy: Code(s): R59.0 - Localized enlarged lymph nodes Plan: Plan - This is likely a reactive lymph node from a possible dental infection. Recommended she increase her fluids, she can take ibuprofen and use a heating pad. Did give precautions that if the pain moves onto the mastoid bone or she develops a fever that she should go to the emergency department. However, my exam and my colleagues exam reveals it is more likely the lymph node at the base of the mastoid bone and does not involve the mastoid bone itself. Also patient is not diabetic. Patient was informed and verbally consented to the use of an ambient scribe for clinic note documentation during this visit. Coding Level of Care Code Est Pt Level 3 (01686) Diagnoses Posterior auricular lymphadenopathy R59.0
--- OUTSIDE RECORDS SUMMARY | 2024-11-24 09:51 | XMS_ITS | Encounter Summary ---
Author Organization [facility] Address [address] [place] [address] Care Team Providers Care Cell Tester Name Role Phone Josefina Coronado MD Primary Care Provider [phone] Felicity London MD Primary Care Provider Unavail able Encounter Details Date Type Department Care Team Description 06/22/1998 [facility] [address] [place] [address] Misty Eason MD [address] [place], [place] [id number] SYNCOPE AND COLLAPSE; NONSPECIFIC ABNORMAL ELECTROCARDIOGRAM (ECG) (EKG); UNSPECIFIED VIRAL INFECTION Social History Tobacco Use Types Packs/Day Years Used Date Smoking Tobacco: Never Assessed Sex Assigned at Date Recorded Not on file documented as of this encounter Plan of Treatment Not on file documented as of this encounter Visit Diagnoses Diagnosis Syncope and collapse Nonspecific abnormal electrocardiogram (ECG) (EKG) Unspecified viral infection, in conditions classified elsewhere and of unspecified site documented in this encounter Care Teams Cell Tester Relationship Specialty Start Date End Date Josefina Coronado MD [address] [place], [place] [id number] PCP - General 06/19/1998 02/27/17 Felicity London MD [address] [place], [place] [id number] PCP - General Internal Medicine 02/28/17 documented as of this encounter
== END 2024-11-24 10:27 | disposition home or self-care (01) ==
PROVIDERS: PCP Internal Medicine; Visit Provider Physician Assistant
DX: R59.0 Localized enlarged lymph nodes (principal)

== ENCOUNTER → 2024-11-24 09:05 | Outpatient (BNVA) | payer MEDICARE, SELFPAY | PROVIDERS: PCP Internal Medicine; Visit Provider Physician Assistant | DX: R59.0 Localized enlarged lymph nodes (principal) | CPT/HCPCS: 99212 ==